=== PATIENT | male | born 1960 | race Caucasian/White ===

== ENCOUNTER 2025-08-26 14:06 | Outpatient (CLI) | payer SELFPAY ==
[2025-08-26 20:12] LABS: Influenza A, PCR Not Detected (NotDetected); Influenza B, PCR Not Detected (NotDetected)
[2025-08-26 20:56] LABS: Coronavirus 19, PCR Detected (NotDetected)
== END 2025-08-26 23:59 ==
LOC: LAB.DROPOF 08-27 09:49
PROVIDERS: Visit Provider Student in an Organized Health Care Education/Training Program
DX: R09.81 Nasal congestion (principal)
CPT/HCPCS: 87636